=== PATIENT | male | born 1940 | race Caucasian/White ===

== ENCOUNTER 2020-11-13 10:06 | Emergency (ER) | payer OTHER, MEDICAID ==
[~2020-11-13] VITALS: Ht 160 cm; Wt 92.5 kg
[2020-11-13 10:11] VITALS: BP 196/75
--- NOTE | 2020-11-13 10:19 | NUR ---
Patient ambulated to bed 09 accompanied by family.
--- NOTE | 2020-11-13 10:25 | NUR ---
80 y/o M BIB daughter c/o high blood pressure reading 198/80 this morning. Patient A&Ox4, ambulatory, Wallisian speaking, with daughter at bedside who reports patient seen by physical therapist yesterday and noted BP 187/80. Patient given prescribed BP medications yesterday that fixed symptoms. Daughter states this morning at 9AM, blood pressure reading at home 198/80. Patient states 6/10 frontal headache, non-radiating. Denies any medications prior to arrival. Skin cool/dry/pink. Patient states "I feel normal right now." BP reading to L arm 168/58; R arm 148/58; HR 55 strong/regular, SpO2 98% on room air. Bed locked in lowest position, side rails x 1. 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 No facial droop or arm drift noted. Addendum: 11/13/20 at 1041 by MYLENE Denies nausea, vomiting, diarrhea, chest pain, dizziness, abdominal pain. Daughter reports patient legally blind.
--- NOTE | 2020-11-13 10:45 | NUR ---
Dr. Aldana is evaluating patient at bedside.
[2020-11-13 10:46] VITALS: BP 148/58
--- NOTE | 2020-11-13 11:25 | NUR ---
Patient discharged with v/s stable. Written and verbal after care instructions given and explained for HTN. Instructions explained. Patient verbalized understanding. Ambulatory with by caregiver. All questions addressed prior to discharge. Advised to follow up with PMD.
== END 2020-11-13 11:25 | disposition home or self-care (01) ==
LOC: MED 10:06
DX: I10 Essential (primary) hypertension (principal); E11.9 Type 2 diabetes mellitus without complications
CPT/HCPCS: 99281

== ENCOUNTER 2021-04-23 17:09 | Emergency (ER) | payer OTHER, MEDICAID ==
[~2021-04-23] VITALS: Ht 157.5 cm; Wt 89.9 kg
[2021-04-23 17:20] VITALS: BP 129/69
--- NOTE | 2021-04-23 17:29 | NUR ---
PT W/C ASSISTED TO BED 7.
--- NOTE | 2021-04-23 17:51 | NUR ---
PT TO CT SCAN VIA [facility].
--- NOTE | 2021-04-23 18:00 | NUR ---
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 PER PT PAIN 07/25. PER [facility] PT SEEMS MOTE LETHARGIC THEN USUAL. PER [facility] PT IS ALSO BLIND. ALLERGIES: PENICILLIN PMH: CHF, DM, DEMENTIA
--- NOTE | 2021-04-23 18:05 | NUR ---
PT BACK FROM CT SCAN.
--- NOTE | 2021-04-23 18:11 | NUR ---
LAB AT BEDSIDE.
--- NOTE | 2021-04-23 18:24 | NUR ---
PT INCONTINET, PROVIDED URINAL BUT COULD NOT URINATE.
[2021-04-23 18:28] LABS: BASOPHILS # (AUTO) 0.2 K/uL (0.00-0.22); BASOPHILS % (AUTO) 1.7 % (0.0-2.0); EOSINOPHILS # (AUTO) 0.3 K/uL (0-0.4); EOSINOPHILS % (AUTO) 3.1 % (0.0-4.0); HEMATOCRIT 36.1 % (36-52); HEMOGLOBIN 12.2 g/dL (12.0-18.0); LYMPHOCYTES # (AUTO) 2.7 K/uL (2.0-11.5); LYMPHOCYTES % (AUTO) 28.9 % (20.5-51.1); MEAN CORPUSCULAR HEMOGLOBIN 32 pg (27-31); MEAN CORPUSCULAR HGB CONC 34 g/dL (33-37); MEAN CORPUSCULAR VOLUME 93.5 fL (80-94); MONOCYTES # (AUTO) 0.9 K/uL (0.8-1.0); MONOCYTES % (AUTO) 9.5 % (1.7-9.3); NEUTROPHILS # (AUTO) 5.3 K/uL (1.8-7.7); NEUTROPHILS % (AUTO) 56.8 % (42.2-75.2); PLATELET COUNT (AUTO) 238 K/uL (140-450); RED BLOOD CELL COUNT(AUTO) 3.86 MIL/uL (4.20-6.10); WHITE BLOOD COUNT (AUTO) 9.3 K/uL (4.8-10.8)
[2021-04-23 18:43] LABS: PROTHROMBIN TIME 11.6 secs (10.8-13.4)
[2021-04-23 18:48] LABS: ALBUMIN 3.2 g/dL (3.4-5.0); ANION GAP 13.7 (8-16); ASPARTATE AMINOTRANSFERASE 16 U/L (15-37); CARBON DIOXIDE 26.7 mmol/L (21-32); CHLORIDE 108 mmol/L (98-107); CREATININE 1.5 mg/dL (0.6-1.3); GLUCOSE 175 mg/dL (74-106); POTASSIUM 4.4 mmol/L (3.5-5.1); SODIUM SERUM 144 mmol/L (136-145); TOTAL BILIRUBIN 0.2 mg/dL (0.0-1.0); UREA NITROGEN, BLOOD 24 mg/dL (7-18)
--- NOTE | 2021-04-23 19:23 | NUR ---
GAVE REPORT TO JORDEN LENTZ.
--- NOTE | 2021-04-23 19:43 | NUR ---
DAUGHTER AT BEDSIDE WITH PT. ER MD WAS ABLE TO TALK WITH PT'S FAMILY CONCERNING PT CONDITION.
[2021-04-23] MEDS ORDERED: ACET-10509 PO (19:55)
[2021-04-23 19:58] LABS: APPEARANCE,URINE CLEAR (CLEAR); BILIRUBIN,URINE 1+ (NEGATIVE); BLOOD, URINE NEGATIVE (NEGATIVE); COLOR,URINE YELLOW (YELLOW); LEUKOCYTE ESTERASE ,URINE NEGATIVE (NEGATIVE); NITRITE, URINE NEGATIVE (NEGATIVE); PH,URINE 5.5 (5.0-9.0); UGLUCOSE NEGATIVE (NEGATIVE)
--- NOTE | 2021-04-23 20:53 | NUR ---
Patient discharged with v/s stable. Written and verbal after care instructions given FOR HEAD INJURY AND DEMENTIA and explained. Patient alert, oriented and verbalized understanding of instructions. Wheel Chair Assisted with by caregiver. All questions addressed prior to discharge. ID band removed. Patient advised to follow up with PMD. Rx of TYNENOL EXTRA STRENGTH given. Patient educated on indication of medication including possible reaction and side effects. Opportunity to ask questions provided and answered.
[2021-04-23 21:01] VITALS: BP 114/63
== END 2021-04-23 20:53 | disposition home or self-care (01) ==
LOC: MED 17:09
DX: S00.01XA Abrasion of scalp, initial encounter (principal); E11.9 Type 2 diabetes mellitus without complications; I10 Essential (primary) hypertension; Z98.890 Other specified postprocedural states; Z88.0 Allergy status to penicillin; Z79.899 Other long term (current) drug therapy; W06.XXXA Fall from bed, initial encounter; Y93.89 Activity, other specified; Y92.89 Other specified places as the place of occurrence of the external cause; Y99.8 Other external cause status
CPT/HCPCS: 36415; 70450; 80053; 81003; 85025; 85610; 85730; 93005; 99285